=== PATIENT | male | born 1995 | race Caucasian/White ===

== ENCOUNTER 2017-08-20 22:04 | Emergency (ER) | payer BC, MEDICAID ==
[2017-08-20] MEDS ORDERED: Naloxone 0.4 MG/ML SDV IVPUSH ONE ×2 (22:12→22:19)
[2017-08-20] MEDS ORDERED: Sodium Chloride 0.9% 1,000 ML IV SCH (22:14)
[2017-08-20] MEDS ORDERED: Flumazenil 0.1 MG/ML 5 ML MDV IVPUSH ONE (22:17)
[2017-08-20] MEDS ORDERED: Rocuronium 100 MG/10 ML MDV ONE ×2 (22:22→23:03)
[2017-08-20] MEDS ORDERED: Rocuronium 100 MG/10 ML MDV IV ONE ×2 (22:26→23:04)
[2017-08-20] MEDS ORDERED: Midazolam 1 MG/ML 2 ML SDV IVPUSH ONE (22:30)
[2017-08-20] MEDS ORDERED: Etomidate 2 MG/ML 10 ML SDV ONE ×2 (22:34→22:38)
[2017-08-20 22:38] LABS: O2 DELIVERY DEVICE RESUSCITATION BAG; O2 FLOW RATE 14 L/min
[2017-08-20 22:41] LABS: BASE EXCESS ARTERIAL -3 mmol/L (-2-3); BICARBONATE,ARTERIAL 24.2 mmol/L (22-26); O2 SATURATION ARTERIAL 100 % (95-98); PCO2 ARTERIAL 51 mmHG (35-45); PO2 ARTERIAL 240 mmHG (80-105)
[2017-08-20 22:45] LABS: CHLORIDE,CL 102 mmol/L (98-107); SODIUM,NA 142 mmol/L (136-145)
[2017-08-20] MEDS ORDERED: Mannitol 500 ML ONE (23:26)
[2017-08-20] MEDS ORDERED: Sodium Chloride 3% 500 ML ONE (23:29)
[2017-08-20] MEDS ORDERED: levETIRAcetam 1,000 MG in Sodium Chloride 0.9% 100 ML IV ONE (23:34)
--- NOTE | 2017-08-21 08:22 | ER ---
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 History was piecemealed from paramedics and parents. Apparently 20 minutes prior to finding son, son was active and his usual self. He went to the room and locked himself in. Father heard alarms go off, and the son did not answer him, so father went to the room, knocked on the door, and there was no response. The father then broke into the room and found his son lying down on the floor in a puddle of vomit. 911 was called, and the patient was transferred to [place] via paramedics. He was unresponsive for most of the trip. Once in a while, he babbled, but was incoherent. The patient brought to the ER. Initial exam revealed the patient responses to painful stimuli, localizes pain, and responds to verbal stimuli. His pupils were 2 mm. His [place] Coma Scale was 10, we gave him 2 for his eyes, 5 for response, and 3 for verbalization. Neck was supple. Lungs, bilateral breath sounds were heard in both lungs. His saturations were 100%, but he was unable to protect his airway. His abdomen was soft and nontender, no masses, no organomegaly. His extremities, the patient moved all 4 extremities on painful stimuli. At this point, it was decided to intubate the patient secondary to the fact that he was not protecting his airway. We went ahead and intubated him without difficulty. We put an 8.5 tube. We also placed a Hall, poli urine for a drug screen, which revealed marijuana, and his ETOH was negative. At this time, two 18-gauge needles were placed and IV started of normal saline at about 100. The Hall was placed. His labs revealed sodium of 142, potassium of 3.0, chloride of 102, BUN 25, glucose was elevated at 206, and his creatinine was 1.6. His lactic acid was elevated at 3.1. His white cells were elevated at 26.9, hemoglobin was 14.8, hematocrit of 41.4, and platelets of 498. We went ahead and called [facility] and the air ambulance for transfer. [facility] accepted it. I spoke to ICU doctor, Dr. Hernandez, who was very helpful. At this time, we started him on IV fluids and decided to speak to the neurosurgeon since we found out that the CT showed enlarged ventricles with a suprasellar mass about 3 cm, which was blood inside, and the third ventricle was obliterated. There were some hyperdense areas within the mass, most probably blood. I spoke with the ICU physician and the neurosurgeon, and the patient was transferred over there. Keppra 1000 mg was given. Mannitol was started at 1000 mg IV within 15 minutes and transferred to [facility]. ILIANA Sprague MD /[id number]
--- NOTE | 2017-08-23 15:46 | PCM.SN ---
- Free Text/Narrative Note: Addendum to ER Note from 08-20-17 Assessment: Intracranial Mass with Increased Ventricular Pressures Plan: Patient transferred to [facility] in [place] for evaluation and treatment
== END 2017-08-20 23:40 ==
LOC: LL.ED 22:04
DX: G93.89 Other specified disorders of brain (principal)
CPT/HCPCS: 36000; 36415; 51702; 70450; 71045; 80053; 80305; 82803; 83605; 85025; 96361; 96374; 96375; 96376; 99291; 99292; G0480; J1953; J2250; J2310; J3490; J7030; J7050